=== PATIENT | male | born 1990 | race African-American/Black ===

== ENCOUNTER 2016-06-16 10:54 | Outpatient (CLI) | payer OTHER ==
[2014-08-03 13:44] VITALS: BP 135/78
[2016-06-16 21:27] LABS: T3 FREE 3.54 pg/mL (2.00-4.40)
== END 2016-06-16 10:55 ==
LOC: LAB 10:54
PROVIDERS: ATTEND Internal Medicine Endocrinology, Diabetes & Metabolism
DX: E05.90 Thyrotoxicosis, unspecified without thyrotoxic crisis or storm (principal)
CPT/HCPCS: 36415; 84439; 84443; 84481

== ENCOUNTER 2016-09-27 09:02 | Outpatient (CLI) | payer OTHER ==
[2014-08-03 13:44] VITALS: BP 135/78
== END 2016-09-27 09:03 ==
LOC: LAB 09:02
PROVIDERS: ATTEND Internal Medicine Endocrinology, Diabetes & Metabolism
DX: E05.90 Thyrotoxicosis, unspecified without thyrotoxic crisis or storm (principal)
CPT/HCPCS: 36415; 84439; 84443; 84481

== ENCOUNTER 2016-11-24 11:52 | Outpatient (CLI) | payer OTHER ==
[2014-08-03 13:44] VITALS: BP 135/78
[2016-11-24 12:37] LABS: eGFR (African) > 60; eGFR (Non-African) > 60
== END 2016-11-24 11:53 ==
LOC: LAB 11:52
DX: Z79.899 Other long term (current) drug therapy (principal)
CPT/HCPCS: 36415; 80048; 80061; 80076

== ENCOUNTER 2017-02-20 10:19 | Outpatient (CLI) | payer OTHER ==
[2014-08-03 13:44] VITALS: BP 135/78
== END 2017-02-20 10:20 ==
LOC: LAB 10:19
PROVIDERS: ATTEND Internal Medicine Endocrinology, Diabetes & Metabolism
DX: E05.90 Thyrotoxicosis, unspecified without thyrotoxic crisis or storm (principal)
CPT/HCPCS: 36415; 84439; 84443; 84481

== ENCOUNTER 2017-03-08 16:18 | Emergency (ER) | payer OTHER ==
--- NOTE | 2017-03-08 16:32 | ED Physician Documentation ---
General Adult - HISTORIAN Historian: patient - HPI Stated Complaint: URI Chief Complaint: General Adult Onset: days ago (2) Timing: still present Severity: moderate Further Comments: yes (Pt is a 27 yo male with nasal drainage for several days. Occasional coughing. No sore throat, fever, n/v. 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) Allergies/Adverse Reactions: Allergies Allergy/AdvReac Type Severity Reaction Status Date / Time No Known Allergies Allergy Verified 08/03/14 13:45 Home Medications: Ambulatory Orders Medication Instructions Recorded Citalopram Hydrobromide [Celexa] 40 mg PO DAILY 08/03/14 risperiDONE [RisperDAL] 0.5 mg PO HS 08/03/14 Methimazole 5 mg PO DAILY u2 02/13/17 - SOCIAL HX Smoking History: chew - FAMILY HX Family History: No - VITAL SIGNS Vital Signs: Vital Signs Temp Pulse Resp BP Pulse Ox 135/78 08/03/14 14:52 - REVIEWED ASSESSMENTS Nursing Assessment Reviewed: Yes Vitals Reviewed: Yes Progress - Progress Progress: Z-marito (Azithromycin) Use as directed. Nasal washes 1-2 times daily as tolerated. General Adult Physical Exam - PHYSICAL EXAM GENERAL APPEARANCE: mild distress EENT: ENT inspection normal, pharynx normal NECK: normal inspection, supple RESPIRATORY: no resp distress, chest non-tender, breath sounds normal CVS: reg rate & rhythm, heart sounds normal ABDOMEN: soft, no organomegaly, normal bowel sounds BACK: normal inspection, no CVA tenderness SKIN: warm/dry, normal color EXTREMITIES: non-tender, normal range of motion, no evidence of injury NEURO: oriented X3, motor nml, sensation nml Discharge Clincal Impression: sinus congestion URI (upper respiratory infection) Qualifiers: URI type: unspecified URI Qualified Code(s): J06.9 - Acute upper respiratory infection, unspecified Referrals: Star Pizarro MD [Primary Care Provider] - Condition: Good Disposition: 01 HOME, SELF-CARE Decision to Admit: NO Decision Time: 16:32
[2017-03-08 16:40] VITALS: BP 135/92
== END 2017-03-08 16:38 | disposition home or self-care (01) ==
LOC: ED 16:18
DX: R09.81 Nasal congestion (principal); J06.9 Acute upper respiratory infection, unspecified
CPT/HCPCS: 99283

== ENCOUNTER 2017-09-06 11:23 | Outpatient (CLI) | payer OTHER | END 2017-09-06 11:24 | LOC: LAB 11:23 | PROVIDERS: ATTEND Internal Medicine Endocrinology, Diabetes & Metabolism | DX: E05.90 Thyrotoxicosis, unspecified without thyrotoxic crisis or storm (principal) | CPT/HCPCS: 36415; 84439; 84443; 84481 ==

== ENCOUNTER 2017-09-22 22:44 | Emergency (ER) | payer OTHER ==
[2017-09-22] MEDS: BENZONATATE 100 MG CAPSULE PO ONE (23:34)
--- NOTE | 2017-09-22 23:39 | ED Physician Documentation ---
Upper Respiratory Symptoms - HISTORIAN Historian: patient - HPI Stated Complaint: cough Chief Complaint: Cough/ Upper Respiratory Additional Information: non prod cough onset x 3 days Onset: days ago (3) Duration: intermittent episodes Context: recent foreign travel. denies: insect bite(s) Severity: moderate Associated Symptoms: denies: fever, chills, sweating Worsened by Deep Breath: Yes - ROS CONST/EYES: denies: weakness, eye redness, eye itching CVS/RESP: none. denies: shortness of breath LYMPH: denies: leg swelling, rash, swollen glands GI/: denies: none, abdominal pain, problems urinating NEURO/PSYCH: denies: fainting, dizziness, confusion - PAST HX Lung Disease: none. denies: pneumonia, bronchitis PE Risk Factors: none Surgeries/Procedures: none Allergies/Adverse Reactions: Allergies Allergy/AdvReac Type Severity Reaction Status Date / Time No Known Allergies Allergy Verified 09/22/17 23:08 Home Medications: Ambulatory Orders Medication Instructions Recorded Citalopram Hydrobromide [Celexa] 40 mg PO DAILY 08/03/14 risperiDONE [RisperDAL] 0.5 mg PO HS 08/03/14 Methimazole 5 mg PO DAILY u2 02/13/17 Benzonatate [Tessalon] 100 mg PO Q4H PRN #25 capsule 09/22/17 - SOCIAL HX Smoking History: less than 1 pack/day Alcohol Use: none Drug Use: none - FAMILY HX Family History: no significant history - VITAL SIGNS Vital Signs: Vital Signs Temp Pulse Resp BP Pulse Ox 98.6 F 100 H 18 114/80 100 09/22/17 22:44 09/22/17 22:44 09/22/17 22:44 09/22/17 22:44 09/22/17 22:44 - REVIEWED ASSESSMENTS Nursing Assessment Reviewed: Yes Vitals Reviewed: Yes ED Results Lab/Radiology - Orders Orders: ED Orders Category Date Time Status Benzonatate [Tessalon] Med 09/22/17 23:34 Once 100 mg PO NOW ONE Upper Respiratory Symptoms - EXAM General Appearance: mild distress EENT: eyes nml inspection, TM erythema, pharynx nml, airway nml. No: rhinorrhea , pharyngeal erythema Neck: normal inspection, thyroid normal Respiratory: no resp. distress, breath sounds nml, no pain on inspiration, speaks full sentences Abdomen: non-tender CVS: reg rate & rhythm, heart sounds normal Skin: color nml, no rash, warm,dry. No: cyanosis, diaphoresis, pallor, rash, signs of IVDA Extremities: non-tender, normal range of motion, no evidence of injury, no edema Neuro/Psych: oriented x3, neuro intact, mood/affect nml Discharge Clincal Impression: uri cough Prescriptions: Benzonatate [Tessalon] 100 mg PO Q4H PRN #25 capsule PRN Reason: Cough Referrals: Primary Doctor,No [Primary Care Provider] - 2 Days Disposition: HOME, SELF-CARE Decision to Admit: NO Decision Time: 23:42
[2017-09-22 23:58] VITALS: BP 98/65
[2017-09-23] MEDS: BENZONATATE 100 MG CAPSULE PO ONE (00:27)
== END 2017-09-22 23:58 | disposition home or self-care (01) ==
LOC: ED 22:44
DX: J06.9 Acute upper respiratory infection, unspecified (principal); R05 Cough
CPT/HCPCS: 99283; A9270-GY

== ENCOUNTER 2017-11-29 11:11 | Outpatient (CLI) | payer OTHER | END 2017-11-29 11:13 | LOC: LAB 11:11 | PROVIDERS: ATTEND Internal Medicine Endocrinology, Diabetes & Metabolism | DX: E05.90 Thyrotoxicosis, unspecified without thyrotoxic crisis or storm (principal) | CPT/HCPCS: 36415; 84439; 84443; 84481 ==

== ENCOUNTER 2018-01-10 10:24 | Outpatient (CLI) | payer OTHER ==
[2018-01-10 11:38] LABS: BASOPHILS % 0.6 (0.0-1.5); EOSINOPHILS % 2.1 % (0.0-6.8); MEAN CORPUSCULAR HEMOGLOBIN 27.9 pg (28.0-34.0); MEAN CORPUSCULAR VOLUME 86.9 fl (80.0-100.0); MONOCYTES % 5.5 % (0.0-11.0); NEUTROPHILS # 3.8 # k/uL (1.4-7.7)
== END 2018-01-10 10:25 ==
LOC: LAB 10:24
PROVIDERS: ATTEND Internal Medicine Endocrinology, Diabetes & Metabolism
DX: E05.90 Thyrotoxicosis, unspecified without thyrotoxic crisis or storm (principal)
CPT/HCPCS: 36415; 80061; 84439; 84443; 84481; 85025

== ENCOUNTER 2018-03-09 08:18 | Outpatient (CLI) | payer OTHER ==
[2018-03-09 08:51] LABS: BASOPHILS % 0.7 (0.0-1.5); EOSINOPHILS % 2.1 % (0.0-6.8); MEAN CORPUSCULAR HEMOGLOBIN 28.7 pg (28.0-34.0); MONOCYTES % 6.9 % (0.0-11.0); NEUTROPHILS # 6.4 # k/uL (1.4-7.7)
[2018-03-09 17:02] LABS: DIRECT BILIRUBIN <0.2 mg/dL (<0.4); TOTAL PROTEIN 7.3 g/dL (6.0-8.5)
== END 2018-03-09 08:20 ==
LOC: LAB 08:18
PROVIDERS: ATTEND Internal Medicine Endocrinology, Diabetes & Metabolism
DX: E05.00 Thyrotoxicosis with diffuse goiter without thyrotoxic crisis or storm (principal); E05.90 Thyrotoxicosis, unspecified without thyrotoxic crisis or storm; E05.01 Thyrotoxicosis with diffuse goiter with thyrotoxic crisis or storm
CPT/HCPCS: 36415; 80076; 84443; 85025

== ENCOUNTER 2018-05-10 08:24 | Outpatient (CLI) | payer OTHER | END 2018-05-10 08:30 | LOC: LAB 08:24 | PROVIDERS: ATTEND Internal Medicine Endocrinology, Diabetes & Metabolism | DX: E05.90 Thyrotoxicosis, unspecified without thyrotoxic crisis or storm (principal) | CPT/HCPCS: 36415; 84439; 84443; 84481 ==

== ENCOUNTER 2018-07-04 10:10 | Outpatient (CLI) | payer OTHER | END 2018-07-04 11:12 | LOC: LAB 10:10 | PROVIDERS: ATTEND Internal Medicine Endocrinology, Diabetes & Metabolism | DX: E05.90 Thyrotoxicosis, unspecified without thyrotoxic crisis or storm (principal) | CPT/HCPCS: 36415; 84439; 84443; 84481 ==

== ENCOUNTER 2018-08-20 10:47 | Outpatient (CLI) | payer OTHER | END 2018-08-20 10:50 | LOC: LAB 10:47 | PROVIDERS: ATTEND Internal Medicine Endocrinology, Diabetes & Metabolism | DX: E05.90 Thyrotoxicosis, unspecified without thyrotoxic crisis or storm (principal) | CPT/HCPCS: 36415; 84439; 84443; 84481 ==

== ENCOUNTER 2018-10-19 08:57 | Outpatient (CLI) | payer OTHER ==
[2018-10-31 14:59] LABS: A1C 5.2 % (-5.7); HDL 40 mg/dL (>40); eGFR (Non-African) > 60
[2018-10-31 15:00] LABS: BASOPHILS % 0.5 % (0.0-1.5); NEUTROPHILS # 5.4 # k/uL (1.4-7.7)
== END 2018-10-19 09:03 | disposition home or self-care (01) ==
LOC: LAB 08:57
PROVIDERS: ATTEND Chiropractor
DX: F25.0 Schizoaffective disorder, bipolar type (principal); F20.89 Other schizophrenia
CPT/HCPCS: 36415; 80048; 80061; 83036; 84443; 85025

== ENCOUNTER 2019-03-11 13:57 | Outpatient (CLI) | payer OTHER ==
[2019-03-11 15:08] LABS: TSH < 0.010 mIU/l (0.465-4.685)
== END 2019-03-11 14:02 ==
LOC: LAB 13:57
PROVIDERS: ATTEND Internal Medicine Endocrinology, Diabetes & Metabolism
DX: E05.90 Thyrotoxicosis, unspecified without thyrotoxic crisis or storm (principal)
CPT/HCPCS: 36415; 84439; 84443; 84481

== ENCOUNTER 2019-04-08 12:12 | Outpatient (CLI) | payer OTHER ==
[2019-04-08 12:48] LABS: BASOPHILS % 0.5 % (0.0-1.5); NEUTROPHILS # 6.7 # k/uL (1.4-7.7)
[2019-04-08 13:39] LABS: TSH < 0.010 mIU/l (0.465-4.685)
== END 2019-04-08 12:17 ==
LOC: LAB 12:12
PROVIDERS: ATTEND Internal Medicine Endocrinology, Diabetes & Metabolism
DX: E05.90 Thyrotoxicosis, unspecified without thyrotoxic crisis or storm (principal)
CPT/HCPCS: 36415; 80076; 84439; 84443; 84481; 85025

== ENCOUNTER 2019-05-17 08:38 | Outpatient (CLI) | payer OTHER ==
[2019-05-17 08:56] LABS: BASOPHILS % 0.7 % (0.0-1.5)
[2019-05-17 10:06] LABS: TSH 3.49 mIU/l (0.465-4.685)
== END 2019-05-17 08:43 ==
LOC: LAB 08:38
PROVIDERS: ATTEND Internal Medicine Endocrinology, Diabetes & Metabolism
DX: E05.90 Thyrotoxicosis, unspecified without thyrotoxic crisis or storm (principal)
CPT/HCPCS: 36415; 80076; 84439; 84443; 84481; 85025